=== PATIENT | female | born 1940 | race Caucasian/White ===

== ENCOUNTER → 2018-06-20 | Outpatient (CLI) | payer OTHER | LOC: BHCLAF 11:30 | PROVIDERS: ATTEND Internal Medicine Interventional Cardiology | DX: R01.1 Cardiac murmur, unspecified (principal); R55 Syncope and collapse | CPT/HCPCS: 93306-PO; 93880-PO ==

== ENCOUNTER → 2018-12-11 | Outpatient (CLI) | payer OTHER | LOC: EMCIMAGING 14:16 ==